=== PATIENT | male | born 1985 | race Two or more races ===

== ENCOUNTER 2018-07-07 10:31 | Inpatient (IN) | payer SELFPAY ==
[2018-07-07 10:38] VITALS: BMI 39.4
--- NOTE | 2018-07-07 11:56 | HP ---
CIWA Score Nausea/Vomitin Muscle Tremors: 2 Anxiety: 2 Agitation: 2 Paroxysmal Sweats: 1-Minimal Palms Moist Orientation: 0-Oriented Tacttile Disturbances: 1-Very Mild Itch/Numbness Auditory Disturbances: 1-Very Mild Visual Disturbances: 0-None Headache: 2-Mild CIWA-Ar Total Score: 13 - Admission Criteria [facility]ASAS Guidelines: Admission for Medically Managed Detox: Requires at least one of the followin. CIWA greater than 12 2. Seizures within the past 24 hours 3. Delirium tremens within the past 24 hours 4. Hallucinations within the past 24 hours 5. Acute intervention needed for co occurring medical disorder 6. Acute intervention needed for co occurring psychiatric disorder 7. Severe withdrawal that cannot be handled at a lower level of care (continued vomiting, continued diarrhea, abnormal vital signs) requiring intravenous medication and/or fluids 8. Patient presents the following: CIWA greater than 12 Admission Criteria Met: Admission criteria met Admission ROS BHS - HPI Chief Complaint: i need help to stop drinking alcohol Allergies/Adverse Reactions: Allergies Allergy/AdvReac Type Severity Reaction Status Date / Time No Known Allergies Allergy Verified 07/07/18 11:48 History of Present Illness: this 32 years old male with alcohol dependence,seen in [place] last night,last detox [facility] 03/17 syncope history of umbilical hernia at age of 17 years no significant period of sobriety Exam Limitations: No Limitations - Ebola screening Have you traveled outside of the country in the last 21 days: No Have you had contact with anyone from an Ebola affected area: No Have you been sick,other than usual withdrawal symptoms: No Do you have a fever: No - Review of Systems Constitutional: Loss of Appetite, Malaise, Night Sweats, Changes in sleep, Weakness EENT: reports: Nose Congestion Respiratory: reports: No Symptoms reported Cardiac: reports: Palpitations GI: reports: Nausea, Abdominal cramping : reports: No Symptoms Reported Musculoskeletal: reports: Back Pain, Muscle Pain Integumentary: reports: Dryness Neuro: reports: Headache, Tremors Endocrine: reports: No Symptoms Reported Hematology: reports: No Symptoms Reported Psychiatric: reports: No Sypmtoms Reported, Judgement Intact, Mood/Affect Appropiate, Orientated x3 Other Systems: Reviewed and Negative Patient History - Patient Medical History Hx Anemia: No Hx Asthma: No Hx Chronic Obstructive Pulmonary Disease (COPD): No Hx Cancer: No Hx Cardiac Disorders: No Hx Congestive Heart Failure: No Hx Hypertension: No Hx Hypercholesterolemia: No Hx Pacemaker: No HX Cerebrovascular Accident: No Hx Seizures: No Hx Dementia: No Hx Diabetes: No Hx Gastrointestinal Disorders: No Hx Liver Disease: No Hx Genitourinary Disorders: No Hx Sexually Transmitted Disorders: No Hx Renal Disease (ESRD): No Hx Thyroid Disease: No Hx Human Immunodeficiency Virus (HIV): No (2018 negative) Hx Hepatitis C: No Hx Depression: No Hx Suicide Attempt: No Hx Bipolar Disorder: No Hx Schizophrenia: No Other Medical History: no suicidal,no homicidal - Patient Surgical History Hx Abdominal Surgery: Yes Other Surgical History: repair of umbilical hernia at age of 17 years - PPD History Previous Implant?: Yes Documented Results: Negative w/o proof Implanted On Prior [facility] Admission?: No PPD to be Administered?: Yes - Smoking Cessation Smoking history: Current every day smoker Have you smoked in the past 12 months: Yes Aproximately how many cigarettes per day: 20 Hx Chewing Tobacco Use: No Initiated information on smoking cessation: Yes 'Breaking Loose' booklet given: 07/07/18 - Substances Abused Alcohol Route: Oral Frequency: Daily Amount used: 4 PINTS VODKA/ 10 24 OZ BEERS Age of first use: 18 Date of Last Use: 07/07/18 Family Disease History - Family Disease History Family History: Denies Family Disease History: Other: Brother (alcohol) Admission Physical Exam BHS - Vital Signs Vital Signs: Vital Signs - 24 hr 07/07/18 10:36 Temperature 98.7 F Pulse Rate 106 H Respiratory 20 Rate Blood Pressure 150/96 - Physical General Appearance: Yes: Moderate Distress, Tremorous, Irritable, Sweating, Anxious HEENTM: Yes: Normal ENT Inspection, K[place], Pharynx Normal Respiratory: Yes: Lungs Clear, Normal Breath Sounds, No Respiratory Distress Neck: Yes: Within Normal Limits, Supple, Trachea in good position Breast: Yes: Within Normal Limits Cardiology: Yes: Within Normal Limits, Regular Rhythm, Regular Rate, S1, S2 Abdominal: Yes: Within Normal Limits, Normal Bowel Sounds, Non Tender, Soft Genitourinary: Yes: Within Normal Limits Back: Yes: Muscle Spasm Musculoskeletal: Yes: Back pain Extremities: Yes: Within Normal Limits, Normal Range of Motion, Tremors Neurological: Yes: insurance operations rep II-XII NML intact, Fully Oriented, Alert, Motor Strength 5/5 Integumentary: Yes: Dry Lymphatic: Yes: Within Normal Limits - Diagnostic (1) Alcohol dependence with uncomplicated withdrawal Current Visit: Yes Status: Acute (2) Alcohol dependence with uncomplicated intoxication Current Visit: Yes Status: Acute (3) Syncope Current Visit: Yes Status: Acute (4) Obesity Current Visit: Yes Status: Acute Cleared for Admission [facility] - Detox or Rehab [facility] Level of Care: Medically Managed Detox Regimen/Protocol: Librium [facility] Breath Alcohol Content Breath Alcohol Content: 0.381 Urine Drug Screen - Results Drug Screen Negative: No Urine Drug Screen Results: BZO-Benzodiazepines Inpatient Rehab Admission - Rehab Decision to Admit Inpatient rehab admission?: No
[2018-07-07] MEDS ORDERED: MAGNESIUM CITRATE 300 ML BOTTLE PO PRN (13:37)
[2018-07-07] MEDS ORDERED: ACETAMINOPHEN 325 MG TABLET (FP) PO PRN (13:37)
[2018-07-07] MEDS ORDERED: IBUPROFEN 400 MG TABLET (FP) PO PRN (13:37)
[2018-07-07] MEDS ORDERED: MAG HYDROX/AL HYDROX/SIMETH 30 ML UNIT-DOSE CUP PO PRN (13:37)
[2018-07-07] MEDS ORDERED: MENTHOL/PHENOL 1 EACH UD MM PRN (13:37)
[2018-07-07] MEDS ORDERED: MAGNESIUM HYDROX 2400MG/30ML ORAL SUSPENSION 30 ML CUP PO PRN (13:37)
[2018-07-07] MEDS ORDERED: P-EPHED 60MG/TRIPROLIDI 2.5MG TABLET PO PRN (13:37)
[2018-07-07 14:49] LABS: URINE APPEARANCE CLEAR; URINE BILIRUBIN NEGATIVE (<2.0 mg/dL); URINE COLOR COLORLESS; URINE GLUCOSE (UA) NEGATIVE (NEGATIVE); URINE KETONE NEGATIVE (NEGATIVE); URINE LEUK ESTERASE NEGATIVE (NEGATIVE); URINE NITRITE NEGATIVE (NEGATIVE); URINE PROTEIN NEGATIVE (NEGATIVE); URINE UROBILINOGEN NEGATIVE mg/dL (0.2-1.0)
--- NOTE | 2018-07-07 15:41 | PN ---
S Progress Note Note: 32 years old male admitted on 07/07/18 for alcohol withdrawal stabilization maliha 0.392 fluctuating mentation responsive to pain stimuli incoherent speech patient is able to tolerate oral fluid well no nausea no vomiting for the safety of the patient and need for hydration of 100 ml per hours oral fluid place patient 1:1
[2018-07-07] MEDS: NICOTINE 21 MG/24 HOURS TOPICAL PATCH TD SCH (15:51)
--- NOTE | 2018-07-07 16:47 | EKG ---
Test Reason : Blood Pressure : / mmHG Vent. Rate : 104 BPM Atrial Rate : 104 BPM P-R Int : 158 ms QRS Dur : 090 ms QT Int : 348 ms P-R-T Axes : 059 036 048 degrees QTc Int : 457 ms SINUS TACHYCARDIA OTHERWISE NORMAL ECG NO PREVIOUS ECGS AVAILABLE Confirmed by JAVIER ROGERS MD ([id number]) on 07/07/2018 4:47:30 PM Referred By: DR ELDER Confirmed By:JAVIER ROGERS MD
[2018-07-07] MEDS: chlordiazePOXIDE HCL 25 MG CAPSULE PO SCH ×2 (18:29→22:20)
[2018-07-07] MEDS: THIAMINE HCL 100 MG TABLET (FP) PO SCH (22:20)
[2018-07-07] MEDS: MELATONIN 5 MG TABLETS PO PRN (22:21)
[2018-07-07] MEDS: guaiFENesin/D-METHORPHAN HB 10 ML UNIT-DOSE CUPS PO PRN (22:22)
[2018-07-08] MEDS: chlordiazePOXIDE HCL 25 MG CAPSULE PO PRN ×2 (01:42→12:31)
[2018-07-08] MEDS: chlordiazePOXIDE HCL 25 MG CAPSULE PO SCH ×4 (06:40→22:22)
[2018-07-08 10:10] LABS: HEMATOCRIT 43.1 % (35.4-49); HEMOGLOBIN 14.4 GM/dL (11.7-16.9); MCH 28.4 pg (25.7-33.7); MCHC 33.5 g/dl (32.0-35.9); MEAN CELL VOLUME 84.6 fl (80-96); PLATELET COUNT 220 K/MM3 (134-434); RBC 5.09 M/mm3 (4.00-5.60); WHITE BLOOD COUNT 3.5 K/mm3 (4.0-10.0)
[2018-07-08] MEDS ORDERED: cloNIDine HCL 0.1 MG TABLET PO ONE (10:24)
--- NOTE | 2018-07-08 10:29 | PN ---
[facility] CIWA - CIWA Score Nausea/Vomitin Muscle Tremors: 3 Anxiety: 4-Mod. Anxious/Guarded Agitation: 0-Normal Activity Paroxysmal Sweats: 3 Orientation: 0-Oriented Tacttile Disturbances: 0-None Auditory Disturbances: 2-Mild Harshness/Frighten Visual Disturbances: 3-Moderate Sensitivity Headache: 0-None Present CIWA-Ar Total Score: 18 BHS Progress Note (SOAP) Subjective: Tremors, Diarrhea, Hot / Cold Sensation, Sweating, Tremors, Poor Appetite, Fatigue. Objective: PATIENT A & O X 3. 07/08/18 10:23 Vital Signs Temperature 98.8 F 07/08/18 09:44 Pulse Rate 77 07/08/18 09:44 Respiratory Rate 18 07/08/18 09:44 Blood Pressure 159/93 07/08/18 09:44 O2 Sat by Pulse Oximetry (%) Laboratory Tests 07/07/18 07/08/18 13:07 06:00 WBC 3.5 L RBC 5.09 Hgb 14.4 Hct 43.1 MCV 84.6 MCH 28.4 MCHC 33.5 RDW 17.0 H Plt Count 220 MPV 8.0 Urine Color Colorless Urine Appearance Clear Urine pH 6.0 Ur Specific [place] 1.002 L Urine Protein Negative Urine Glucose (UA) Negative Urine Ketones Negative Urine Blood Negative Urine Nitrite Negative Urine Bilirubin Negative Urine Urobilinogen Negative Ur Leukocyte Esterase Negative LABS NOTED. Assessment: 07/08/18 10:23 WITHDRAWAL SYMPTOMS. ELEVATED BLOOD PRESSURE. 07/08/18 10:24 Plan: CONTINUE DETOX. CLONIDINE, 0.1 MG PO BID FOR ELEVATED BLOOD PRESSURE AND FOR SEVERE WITHDRAWAL SYMPTOMS. PRN ZOFRAN SL FOR NAUSEA. ENSURE PO TID FOR POOR APPETITE. PATIENT REPORTS FATIGUE AND DIZZINESS. JUNIOR ENGINEER CURRENTLY OBSERVING PATIENT FOR 1:1 STATUS NOTES THAT PATIENT APPEARED TO HAVE UNSTEADY GAIT WHEN AMBULATING TO BATHROOM EARLIER. PATIENT TO BE MAINTAINED ON 1:1 CONTINUOUS OBSERVATION STATS FOR TIME BEING. PATIENT WILL BE RE-EVALUATED AND ABILITY TO AMBULATE WILL BE RE-ASSESSED AGAIN IN 3-4 HOURS.
[2018-07-08] MEDS ORDERED: ONDANSETRON *ODT* 4 MG TABLET SL PRN (10:35)
[2018-07-08] MEDS: PRENATAL VITAMINS W/ FOLIC ACID TABLET (FP) PO SCH (10:54)
[2018-07-08 10:56] LABS: ALBUMIN 3.7 g/dl (3.4-5.0); ALK PHOS 117 U/L (45-117); ANION GAP 9 MMOL/L (8-16); BILIRUBIN,TOTAL 0.2 mg/dL (0.2-1); BLOOD UREA NITROGEN 6 mg/dL (7-18); CHLORIDE 104 mmol/L (98-107); CO2 28 mmol/L (21-32); CREATININE 0.7 mg/dL (0.55-1.3); GLUCOSE,RANDOM 125 mg/dL (74-106); POTASSIUM 3.7 mmol/L (3.5-5.1); SGOT/AST 61 U/L (15-37); SGPT/ALT 150 U/L (13-61); SODIUM 141 mmol/L (136-145); TOT PROT 7.4 g/dl (6.4-8.2)
[2018-07-08] MEDS: NICOTINE 21 MG/24 HOURS TOPICAL PATCH TD SCH (10:59)
--- NOTE | 2018-07-08 12:17 | PN ---
[facility] Progress Note Note: PATIENT OBSERVED AMBULATING ON UNIT UNASSISTED AND WITHOUT APPARENT DIFFICULTY. PATIENT NOTES THAT HE FEELS OKAY TO AMBULATE WITH ASSISTANCE AND THAT PREVIOUS FEELING OF DIZZINESS HAS SUBSIDED. 1:1 CONTINUOUS OBSERVATION STATUS D/C'D. PATIENT ADVISED TO GET UP FROM BED / CHAIRS SLOWLY AND TO AMBULATE SLOWLY ON UNIT AND TO MAKE USE OF HANDRAILS ON [place] WHEN AMBULATING WHEN POSSIBLE. PATIENT VERBALIZED UNDERSTANDING OF RECOMMENDATIONS. RESULTS OF ADMISSION CMP NOTED. WILL REPEAT AST, ALT TOMORROW AM FOR ELEVATED ADMISSION LEVELS. Emmanuel IGLESIAS NP
[2018-07-08] MEDS: LOPERAMIDE HCL 2 MG CAPSULE PO PRN (12:31)
[2018-07-08] MEDS: guaiFENesin/D-METHORPHAN HB 10 ML UNIT-DOSE CUPS PO PRN (17:21)
[2018-07-08] MEDS: THIAMINE HCL 100 MG TABLET (FP) PO SCH (22:22)
[2018-07-08] MEDS: cloNIDine HCL 0.1 MG TABLET PO SCH (22:22)
[2018-07-09] MEDS: LOPERAMIDE HCL 2 MG CAPSULE PO PRN (06:14)
[2018-07-09] MEDS: guaiFENesin/D-METHORPHAN HB 10 ML UNIT-DOSE CUPS PO PRN ×2 (06:14→17:11)
[2018-07-09] MEDS: chlordiazePOXIDE HCL 25 MG CAPSULE PO SCH ×2 (06:14→10:37)
[2018-07-09] MEDS: PRENATAL VITAMINS W/ FOLIC ACID TABLET (FP) PO SCH (10:37)
[2018-07-09] MEDS: cloNIDine HCL 0.1 MG TABLET PO SCH ×2 (10:37→22:32)
[2018-07-09] MEDS: NICOTINE 21 MG/24 HOURS TOPICAL PATCH TD SCH (10:38)
[2018-07-09 11:35] LABS: SGOT/AST 31 U/L (15-37); SGPT/ALT 90 U/L (13-61)
--- NOTE | 2018-07-09 14:20 | PN ---
[facility] CIWA - CIWA Score Nausea/Vomitin-No Nausea/No Vomiting Muscle Tremors: 3 Anxiety: 2 Agitation: 0-Normal Activity Paroxysmal Sweats: 3 Orientation: 0-Oriented Tacttile Disturbances: 2-Mild Itch/Numbness/Burn Auditory Disturbances: 0-None Visual Disturbances: 2-Mild Sensitivity Headache: 0-None Present CIWA-Ar Total Score: 12 BHS Progress Note (SOAP) Subjective: Tremors, Sweating, Hot / Cold Sensations, Poor Appetite. Patient Reports that He Feels better Overall today than he did Yesterday. Objective: PATIENT A & O X 3, OBSERVED AMBULATING ON UNIT UNASSISTED AND WITHOUT APPARENT DIFFICULTY. IN NO ACUTE DISTRESS. PATIENT APPEARS GENERALLY BETTER TODAY THAN HE DID YESTERDAY. 07/09/18 14:16 Vital Signs Temperature 96.5 F L 07/09/18 13:13 Pulse Rate 68 07/09/18 13:13 Respiratory Rate 18 07/09/18 13:13 Blood Pressure 130/78 07/09/18 13:13 O2 Sat by Pulse Oximetry (%) Laboratory Tests 07/07/18 07/08/18 07/08/18 13:07 06:00 06:00 WBC 3.5 L RBC 5.09 Hgb 14.4 Hct 43.1 MCV 84.6 MCH 28.4 MCHC 33.5 RDW 17.0 H Plt Count 220 MPV 8.0 Sodium 141 Potassium 3.7 Chloride 104 Carbon Dioxide 28 Anion Gap 9 BUN 6 L Creatinine 0.7 Creat Clearance w eGFR > 60 Random Glucose 125 H Calcium 8.0 L Total Bilirubin 0.2 AST 61 H ALT 150 H Alkaline Phosphatase 117 Total Protein 7.4 Albumin 3.7 Urine Color Colorless Urine Appearance Clear Urine pH 6.0 Ur Specific [place] 1.002 L Urine Protein Negative Urine Glucose (UA) Negative Urine Ketones Negative Urine Blood Negative Urine Nitrite Negative Urine Bilirubin Negative Urine Urobilinogen Negative Ur Leukocyte Esterase Negative RPR Titer 07/08/18 07/09/18 06:00 07:40 WBC RBC Hgb Hct MCV MCH MCHC RDW Plt Count MPV Sodium Potassium Chloride Carbon Dioxide Anion Gap BUN Creatinine Creat Clearance w eGFR Random Glucose Calcium Total Bilirubin AST 31 ALT 90 H Alkaline Phosphatase Total Protein Albumin Urine Color Urine Appearance Urine pH Ur Specific [place] Urine Protein Urine Glucose (UA) Urine Ketones Urine Blood Urine Nitrite Urine Bilirubin Urine Urobilinogen Ur Leukocyte Esterase RPR Titer Nonreactive LABS NOTED. RESULTS OF REPEAT AST AND ALT NOTED. IMPROVEMENT NOTED IN BOTH REPEAT LAB VALUES. 07/09/18 14:18 Assessment: 07/09/18 14:19 WITHDRAWAL SYMPTOMS. ELEAVTED LIVER ENZYMES. LUEKOPENIA. Plan: CONTINUE DETOX. INCREASE DAILY PO FLUID INTAKE. ENSURE WITH MEALS TID. CLONIDINE, 0.1 MG PO BID FOR WITHDRAWAL SYMPTOMS.
[2018-07-09] MEDS: chlordiazePOXIDE 5 MG CAPSULE PO SCH ×2 (17:02→22:32)
[2018-07-09] MEDS: THIAMINE HCL 100 MG TABLET (FP) PO SCH (22:31)
[2018-07-09] MEDS: MELATONIN 5 MG TABLETS PO PRN (22:32)
[2018-07-10 06:13] VITALS: BP 127/76; PULSE 78; TEMP 98.8
[2018-07-10] MEDS: chlordiazePOXIDE 5 MG CAPSULE PO SCH (06:39)
[2018-07-10] MEDS: guaiFENesin/D-METHORPHAN HB 10 ML UNIT-DOSE CUPS PO PRN (06:39)
--- NOTE | 2018-07-10 08:51 | DS ---
[facility] Detox Discharge Summary Admission Date: 07/07/18 Discharge Date: 07/10/18 - History Present History: Alcohol Dependence Additional Comments: 32 years old male admitted on 07/07/18 for alcohol withdrawal stabilization feeling better today preferred return home today and begin alcohol rehab tomorrow alert steady denies pain denies suicidal ideation denies gi distress - Physical Exam Results Vital Signs: Vital Signs Temperature 98.8 F 07/10/18 06:13 Pulse Rate 78 07/10/18 06:13 Respiratory Rate 18 07/10/18 06:13 Blood Pressure 127/76 07/10/18 06:13 O2 Sat by Pulse Oximetry (%) Pertinent Admission Physical Exam Findings: alcohol withdrawal sx Laboratory Last Values WBC 3.5 K/mm3 (4.0-10.0) L 07/08/18 06:00 RBC 5.09 M/mm3 (4.00-5.60) 07/08/18 06:00 Hgb 14.4 GM/dL (11.7-16.9) 07/08/18 06:00 Hct 43.1 % (35.4-49) 07/08/18 06:00 MCV 84.6 fl (80-96) 07/08/18 06:00 MCH 28.4 pg (25.7-33.7) 07/08/18 06:00 MCHC 33.5 g/dl (32.0-35.9) 07/08/18 06:00 RDW 17.0 % (11.9-15.9) H 07/08/18 06:00 Plt Count 220 K/MM3 (134-434) 07/08/18 06:00 MPV 8.0 fl (7.5-11.1) 07/08/18 06:00 Sodium 141 mmol/L (136-145) 07/08/18 06:00 Potassium 3.7 mmol/L (3.5-5.1) 07/08/18 06:00 Chloride 104 mmol/L (98-107) 07/08/18 06:00 Carbon Dioxide 28 mmol/L (21-32) 07/08/18 06:00 Anion Gap 9 MMOL/L (8-16) 07/08/18 06:00 BUN 6 mg/dL (7-18) L 07/08/18 06:00 Creatinine 0.7 mg/dL (0.55-1.3) 07/08/18 06:00 Creat Clearance w eGFR > 60 (>60) 07/08/18 06:00 Random Glucose 125 mg/dL (74-106) H 07/08/18 06:00 Calcium 8.0 mg/dL (8.5-10.1) L 07/08/18 06:00 Total Bilirubin 0.2 mg/dL (0.2-1) 07/08/18 06:00 AST 31 U/L (15-37) 07/09/18 07:40 ALT 90 U/L (13-61) H 07/09/18 07:40 Alkaline Phosphatase 117 U/L (45-117) 07/08/18 06:00 Total Protein 7.4 g/dl (6.4-8.2) 07/08/18 06:00 Albumin 3.7 g/dl (3.4-5.0) 07/08/18 06:00 Urine Color Colorless 07/07/18 13:07 Urine Appearance Clear 07/07/18 13:07 Urine pH 6.0 (5.0-8.0) 07/07/18 13:07 Ur Specific [place] 1.002 (1.010-1.035) L 07/07/18 13:07 Urine Protein Negative (NEGATIVE) 07/07/18 13:07 Urine Glucose (UA) Negative (NEGATIVE) 07/07/18 13:07 Urine Ketones Negative (NEGATIVE) 07/07/18 13:07 Urine Blood Negative (NEGATIVE) 07/07/18 13:07 Urine Nitrite Negative (NEGATIVE) 07/07/18 13:07 Urine Bilirubin Negative (<2.0 mg/dL) 07/07/18 13:07 Urine Urobilinogen Negative mg/dL (0.2-1.0) 07/07/18 13:07 Ur Leukocyte Esterase Negative (NEGATIVE) 07/07/18 13:07 RPR Titer Nonreactive (NONREACTIVE) 07/08/18 06:00 lab noted calcium rich food - Treatment Hospital Course: Detox Protocol Followed, Detoxed Safely, Responded well, Discharged Condition Good, Rehab Referral Accepted Patient has Accepted a Rehab Referral to: [facility] [place] - Medication Discharge Medications: Ambulatory Orders NK [No Known Home Medication] 07/07/18 Naltrexone HCl [Revia -] 100 mg PO DAILY #14 tablet 07/10/18 - Diagnosis (1) Alcohol dependence with uncomplicated withdrawal Status: Acute - AMA Did Patient Leave Against Medical Advice: No
[2018-07-10] MEDS: NICOTINE 21 MG/24 HOURS TOPICAL PATCH TD SCH (09:28)
[2018-07-10] MEDS: PRENATAL VITAMINS W/ FOLIC ACID TABLET (FP) PO SCH (09:28)
[2018-07-10] MEDS: cloNIDine HCL 0.1 MG TABLET PO SCH (09:28)
[2018-07-10] MEDS ORDERED: chlordiazePOXIDE HCL 10 MG CAPSULE PO SCH (17:00)
[2018-07-11] MEDS ORDERED: NALTREXONE HCL 50 MG TABLET PO SCH (10:00)
== END 2018-07-10 09:25 | disposition home or self-care (01) | DRG 775 ==
LOC: YASAS 10:31 → Y3N 12:03
PROVIDERS: ADMIT Surgery; ATTEND Surgery
PROC: HZ2ZZZZ Detoxification Services for Substance Abuse Treatment (ICD-10-PCS; principal; 2018-07-07)
DX: F10.230 Alcohol dependence with withdrawal, uncomplicated (principal); F17.210 Nicotine dependence, cigarettes, uncomplicated; R03.0 Elevated blood-pressure reading, without diagnosis of hypertension; D72.819 Decreased white blood cell count, unspecified; R74.8 Abnormal levels of other serum enzymes; E66.9 Obesity, unspecified; Z68.39 Body mass index [BMI] 39.0-39.9, adult; R55 Syncope and collapse
CPT/HCPCS: 36415; 80053; 81003; 84450; 84460; 85027; 86593; 93005; 93010; J0735